=== PATIENT | female | born 1965 | race African-American/Black ===

== ENCOUNTER 2024-01-21 16:54 | Inpatient (IN) | payer OTHER ==
[2024-01-21 19:09] LABS: HEMATOCRIT 23.2 % (32.4-45.2); HEMOGLOBIN 7.3 GM/dL (10.7-15.3); MCHC 31.5 g/dl (32.0-36.0); MEAN CELL VOLUME 85.7 fl (80-96); RBC 2.71 M/mm3 (3.60-5.2); WHITE BLOOD COUNT 11.3 K/mm3 (4.0-10.0)
[2024-01-21 19:22] LABS: PROTHROMBIN TIME (PATIENT) 11.5 SEC (9.7-13.0)
[2024-01-21 19:24] LABS: ACTIVATED PTT 36.9 SECONDS (25.2-36.5)
[2024-01-21 19:30] LABS: CHLORIDE 101 mmol/L (98-107); POTASSIUM 5.7 mmol/L (3.5-5.1); SODIUM 136 mmol/L (136-145)
[2024-01-21 19:31] LABS: GLUCOSE,RANDOM 94 mg/dL (74-106)
[2024-01-21 19:32] LABS: ALBUMIN 2.2 g/dl (3.4-5.0); ANION GAP 11 mmol/L (4-13); BLOOD UREA NITROGEN 101.4 mg/dL (7-18); CALCIUM 8.9 mg/dL (8.5-10.1); CO2 24 mmol/L (21-32); MAGNESIUM 2.6 mg/dL (1.8-2.4)
[2024-01-21 19:35] LABS: SGPT/ALT 12 U/L (13-61)
[2024-01-21 19:36] LABS: SGOT/AST 8 U/L (15-37)
[2024-01-21 19:37] LABS: BILIRUBIN,TOTAL 0.2 mg/dL (0.2-1); TOT PROT 7.1 g/dl (6.4-8.2)
[2024-01-21 19:38] LABS: ALK PHOS 70 U/L (45-117)
[2024-01-21 19:43] LABS: CREATININE 7.8 mg/dL (0.55-1.3)
[2024-01-21 20:09] LABS: EPI CELLS 23 /uL (0-25.1); HYALINE CASTS 0 /uL (0-3.1); URINE APPEARANCE CLEAR; URINE BACTERIA 408 /uL (0-1359); URINE BILIRUBIN NEGATIVE (NEGATIVE); URINE COLOR YELLOW; URINE GLUCOSE (UA) NEGATIVE (NEGATIVE); URINE KETONE NEGATIVE (NEGATIVE); URINE LEUK ESTERASE 1+ (NEGATIVE); URINE NITRITE NEGATIVE (NEGATIVE); URINE PROTEIN 2+ (NEGATIVE); URINE RBC 64 /uL (0-23.9); URINE UROBILINOGEN 0.2 mg/dL (0.2-1.0); URINE WBC 22 /uL (0-25.8)
[2024-01-21 20:17] LABS: ANISOCYTOSIS 2+; MACROCYTOSIS 1+; OVALOCYTE 1+
[2024-01-21 20:20] LABS: PLATELET COUNT 400 10^3/uL (134-434)
[2024-01-21] MEDS ORDERED: SODIUM ZIRCONIUM CYCLOSILICATE (LOKELMA) 10 GM PACKET ONE (23:34)
[2024-01-21] MEDS: SODIUM ZIRCONIUM CYCLOSILICATE (LOKELMA) 5 GM PACKET PO ONE (23:38)
[2024-01-22] MEDS: LIDOCAINE HCL 1%, 10 MG/ML (20ML VIAL) NR ONE ×2
[2024-01-22 08:55] LABS: HEMATOCRIT 21.2 % (32.4-45.2); MCH 27.2 pg (25.7-33.7); MCHC 31.8 g/dl (32.0-36.0); MEAN CELL VOLUME 85.6 fl (80-96); MEAN PLT VOLUME 7.7 fl (7.5-11.1); PLATELET COUNT 374 10^3/uL (134-434); RBC 2.48 M/mm3 (3.60-5.2); RDW 18.8 % (11.6-15.6); WHITE BLOOD COUNT 9.1 K/mm3 (4.0-10.0)
[2024-01-22 09:08] LABS: HEMOGLOBIN 6.7 GM/dL (10.7-15.3)
[2024-01-22 09:12] LABS: CHLORIDE 102 mmol/L (98-107); POTASSIUM 5.3 mmol/L (3.5-5.1); SODIUM 137 mmol/L (136-145)
[2024-01-22 09:15] LABS: ALBUMIN 2.2 g/dl (3.4-5.0); ANION GAP 11 mmol/L (4-13); CO2 24 mmol/L (21-32); GLUCOSE,RANDOM 73 mg/dL (74-106); MAGNESIUM 2.7 mg/dL (1.8-2.4)
[2024-01-22 09:17] LABS: IRON SERUM 68 ug/dL (50-175); PHOSPHOROUS 6.3 mg/dL (2.5-4.9)
[2024-01-22 09:18] LABS: SGOT/AST 8 U/L (15-37); SGPT/ALT 10 U/L (13-61); TOTAL IRON BINDING CAPACITY 183 ug/dL (250-450)
[2024-01-22 09:19] LABS: BILIRUBIN,TOTAL 0.2 mg/dL (0.2-1); TOT PROT 6.7 g/dl (6.4-8.2)
[2024-01-22 09:20] LABS: ALK PHOS 66 U/L (45-117)
[2024-01-22] MEDS: AMINO ACIDS/PROTEIN HYDROLYS 30 ML LIQUID.PKT PO SCH ×2 (09:21→18:24)
[2024-01-22] MEDS: INSULIN ASPART SLIDING SCALE (NOVOLOG) 1 VIAL SQ SCH ×2 (09:21→18:27)
[2024-01-22 09:36] LABS: BLOOD UREA NITROGEN 110.5 mg/dL (7-18); CREATININE 8.3 mg/dL (0.55-1.3)
[2024-01-22] MEDS ORDERED: PATIENT'S OWN MEDICATION (NON-FORMULARY) (Furosemide [Lasix] 80 MG Tablet) PO SCH (10:00)
[2024-01-22] MEDS ORDERED: LIDOCAINE HCL 1%, 10 MG/ML (20ML VIAL) ONE (10:48)
[2024-01-22] MEDS ORDERED: HEPARIN NA (PORCINE) 5,000 UNITS/ML 1ML VIAL ONE (10:48)
[2024-01-22] MEDS ORDERED: MIDAZOLAM HCL 2 MG/2 ML SINGLE DOSE VIAL ONE (11:36)
[2024-01-22 11:42] LABS: RETICULOCYTES 1.02 % (0.5-1.5)
[2024-01-22] MEDS ORDERED: ATORVASTATIN CA 40 MG TABLET (FP) PO SCH (22:00)
[2024-01-22] MEDS: HEPARIN NA (PORCINE) 5,000 UNITS/ML 1ML VIAL SQ SCH ×2 (22:05→23:22)
[2024-01-22] MEDS: risperiDONE 1 MG TABLET PO SCH ×2 (22:05→23:22)
[2024-01-22] MEDS: CARVEDILOL 6.25 MG TABLET (FP) PO SCH ×2 (22:05→23:23)
[2024-01-22] MEDS: VALPROATE SODIUM 250 MG/5 ML UNIT DOSE CUP PO SCH ×2 (22:05→23:23)
[2024-01-22] MEDS: ATORVASTATIN CA 40 MG TABLET (FP) PO SCH (22:06)
[2024-01-22] MEDS: FAMOTIDINE 20 MG TABLET PO SCH (23:22)
[2024-01-22] MEDS: COLLAGENASE CLOSTRIDIUM HIST. 30 GRAMS TUBE TP SCH (23:22)
[2024-01-22] MEDS: amLODIPine BESYLATE 2.5 MG TABLET (FP) PO SCH (23:22)
[2024-01-22] MEDS: ASPIRIN 81 MG CHEWABLE TABLETS PO SCH (23:24)
[2024-01-23] MEDS: FAMOTIDINE 20 MG TABLET PO SCH (09:05)
[2024-01-23] MEDS: amLODIPine BESYLATE 2.5 MG TABLET (FP) PO SCH (09:05)
[2024-01-23] MEDS: ASPIRIN 81 MG CHEWABLE TABLETS PO SCH (09:06)
[2024-01-23 10:22] LABS: BASO % 0.4 % (0-2.0); EOS % 5.7 % (0-4.5); HEMATOCRIT 25.2 % (32.4-45.2); HEMOGLOBIN 8.1 GM/dL (10.7-15.3); LYMPH % 22.4 % (8-40); MCH 26.9 pg (25.7-33.7); MCHC 32.3 g/dl (32.0-36.0); MEAN CELL VOLUME 83.4 fl (80-96); MEAN PLT VOLUME 7.4 fl (7.5-11.1); MONO % 7.5 % (3.8-10.2); PLATELET COUNT 347 10^3/uL (134-434); RBC 3.02 M/mm3 (3.60-5.2); RDW 17.7 % (11.6-15.6); WHITE BLOOD COUNT 9.2 K/mm3 (4.0-10.0)
[2024-01-23] MEDS: VITAMIN B COMP W-C 1 EA TABLET (NEPHRO-VITE) PO SCH (10:32)
[2024-01-23] MEDS: COLLAGENASE CLOSTRIDIUM HIST. 30 GRAMS TUBE TP SCH (11:21)
[2024-01-23 12:26] LABS: CHLORIDE 104 mmol/L (98-107); POTASSIUM 5.4 mmol/L (3.5-5.1); SODIUM 138 mmol/L (136-145)
[2024-01-23 12:28] LABS: CALCIUM 9.3 mg/dL (8.5-10.1)
[2024-01-23 12:29] LABS: ALBUMIN 2.2 g/dl (3.4-5.0); ANION GAP 13 mmol/L (4-13); CO2 21 mmol/L (21-32); GLUCOSE,RANDOM 143 mg/dL (74-106)
[2024-01-23 12:32] LABS: SGOT/AST 7 U/L (15-37); SGPT/ALT 10 U/L (13-61)
[2024-01-23 12:34] LABS: BILIRUBIN,TOTAL 0.3 mg/dL (0.2-1); BLOOD UREA NITROGEN 127.4 mg/dL (7-18); TOT PROT 6.6 g/dl (6.4-8.2)
[2024-01-23 12:35] LABS: ALK PHOS 70 U/L (45-117)
[2024-01-23] MEDS ORDERED: SODIUM CHLORIDE 250 ML IV PRN (14:33)
[2024-01-23] MEDS: EPOETIN ALFA-EPBX 4,000 UNIT/ML VIAL IVPUSH ONE (15:38)
[2024-01-23 18:36] VITALS: RESP 18
[2024-01-24 09:43] VITALS: TEMP 98.6
[2024-01-24 13:53] VITALS: PULSE 92
[2024-01-24 14:51] VITALS: BP 118/69
[2024-01-27 10:03] VITALS: BMI 29.7
== END 2024-01-24 17:44 | DRG 182 ==
LOC: JER 16:54 → JERBED 21:35 → J6S 01-22 16:44
PROVIDERS: ADMIT Student in an Organized Health Care Education/Training Program; ATTEND Internal Medicine
PROC: 057F3ZZ Dilation of Left Cephalic Vein, Percutaneous Approach (ICD-10-PCS; principal; 2024-01-22 10:00)
DX: T82.858A Stenosis of other vascular prosthetic devices, implants and grafts, initial encounter (principal); F20.9 Schizophrenia, unspecified; L89.154 Pressure ulcer of sacral region, stage 4; I12.0 Hypertensive chronic kidney disease with stage 5 chronic kidney disease or end stage renal disease; E11.22 Type 2 diabetes mellitus with diabetic chronic kidney disease; Z93.0 Tracheostomy status; N18.6 End stage renal disease; J44.9 Chronic obstructive pulmonary disease, unspecified; D64.9 Anemia, unspecified; E78.5 Hyperlipidemia, unspecified; I25.10 Atherosclerotic heart disease of native coronary artery without angina pectoris; B18.2 Chronic viral hepatitis C; Z99.2 Dependence on renal dialysis; Y83.8 Other surgical procedures as the cause of abnormal reaction of the patient, or of later complication, without mention of misadventure at the time of the procedure
CPT/HCPCS: 0241U-QW; 36415; 36430; 71045-TC-FY; 76000-TC-FY; 80053; 81003; 82728; 82962; 83540; 83550; 83735; 84100; 84466; 85025; 85027; 85045; 85610; 85730; 86705; 86803; 86850; 86900; 86901; 86922; 87340; 87517; 87522; 94760; 99285-25; J1644; P9058; Q5106

== ENCOUNTER 2024-02-25 01:30 | Emergency (ER) | payer OTHER ==
[2024-02-25 02:01] VITALS: BMI 26.6
[2024-02-25 03:27] LABS: POTASSIUM 4.2 mmol/L (3.5-5.1)
[2024-02-25 03:29] LABS: CALCIUM 8.4 mg/dL (8.5-10.1)
[2024-02-25 03:30] LABS: ALBUMIN 2.4 g/dl (3.4-5.0); BLOOD UREA NITROGEN 72.2 mg/dL (7-18)
[2024-02-25 03:33] LABS: CREATININE 6.9 mg/dL (0.55-1.3)
[2024-02-25 03:34] LABS: BILIRUBIN,TOTAL 0.3 mg/dL (0.2-1)
[2024-02-25 04:12] LABS: BASO % 0.8 % (0-2.0); EOS % 4.5 % (0-4.5); HEMATOCRIT 21.9 % (32.4-45.2); LYMPH % 23.8 % (8-40); MCHC 30.4 g/dl (32.0-36.0); MEAN CELL VOLUME 82.3 fl (80-96); MEAN PLT VOLUME 7.2 fl (7.5-11.1); MONO % 8.4 % (3.8-10.2); NEUT % 62.5 % (42.8-82.8); PLATELET COUNT 399 10^3/uL (134-434); RBC 2.67 M/mm3 (3.60-5.2); WHITE BLOOD COUNT 11.1 K/mm3 (4.0-10.0)
[2024-02-25 04:14] LABS: HEMOGLOBIN 6.7 GM/dL (10.7-15.3)
[2024-02-25 06:20] VITALS: TEMP 98.4
[2024-02-25 13:44] VITALS: BP 145/90; PULSE 96; RESP 20
== END 2024-02-25 13:44 | disposition home or self-care (01) ==
LOC: JER 01:30
DX: D64.9 Anemia, unspecified (principal)
CPT/HCPCS: 36415; 36430; 80053; 85025; 86850; 86900; 86901; 86922; 99283-25; P9058